=== PATIENT | female | born 1990 | race Caucasian/White ===

== ENCOUNTER 2016-04-08 03:04 | Emergency (ER) | payer BC ==
[~2016-04-08] VITALS: Ht 154.9 cm; Wt 75.3 kg
[2016-04-08] MEDS ORDERED: NKM (03:27)
--- NOTE | 2016-04-08 03:35 | Emergency Room Report ---
History of Present Illness General Chief Complaint: Fever Source: Patient Present Illness HPI Patient presents with 2 days of fever headache body pain. She also has a sore throat. She vomited yesterday had some diarrhea at that time. Her menses are irregular. She doesn't play she now. She's taking her medication issues in an alcohol rehabilitation program. Just not coughing up any productive phlegm. She does smoke cigarettes. She did not get a flu shot. Allergies: Coded Allergies: No Known Allergies (Unverified , 04/08/16) Patient History Past Medical History: see triage record Social History: Reports: alcohol use, smoking Social History Narrative alcohol rehab facility Last Menstrual Period: Mar Now: No : 0 Para: 0 Reviewed Nursing Documentation: PMH: Agreed, PSxH: Agreed Nursing Documentation-PMH Past Medical History: No Stated History Review of Systems All Other Systems: negative except mentioned in HPI Physical Exam Vital Signs Date Time Temp Pulse Resp B/P Pulse Ox O2 Delivery O2 Flow Rate FiO2 04/08/16 03:18 100.2 110 18 121/85 100 Room Air Sp02 EP Interpretation: reviewed, normal General Appearance: well appearing, no apparent distress Head: normocephalic, atraumatic ENT: hearing grossly normal, normal voice, pharyngeal erythema Neck: full range of motion, supple Respiratory: lungs clear, normal breath sounds, no respiratory distress, speaking full sentences Cardiovascular #1: regular rate, rhythm, no edema Gastrointestinal: normal inspection, normal bowel sounds, soft Musculoskeletal: back normal, digits/nails normal, gait/station normal, normal range of motion, no calf tenderness Neurologic: alert, normal gait, grossly normal Psychiatric: mood/affect normal Skin: no rash Medical Decision Making Diagnostic Impression: Primary Impression: Viral syndrome ER Course The patient presents with a short course of flulike symptoms with fever and muscle aches. Differential includes influenza, viral infection, bacterial infection. Exam is against strep at this time. The patient will be treated symptomatically. In addition she comes from a institution influenza will be tested. The patient is improved with oral medication here. Influenza is negative. The patient is stable for outpatient observation and treatment. Last Vital Signs Date Time Temp Pulse Resp B/P Pulse Ox O2 Delivery O2 Flow Rate FiO2 04/08/16 03:18 100.2 110 18 121/85 100 Room Air Status: improved Disposition: HOME, SELF-CARE Condition: Improved Scripts Acetaminophen (Tylenol) 325 Mg Tablet 650 MG ORAL Q6H Y for Prn Pain/Headache/Temp > 101, #30 TAB 0 Refills Prov: Michael Velasco M.D. 04/08/16 Ibuprofen* (MOTRIN*) 600 Mg Tablet 600 MG ORAL Q6H Y for For Pain, #20 TAB Prov: Michael Velasco M.D. 04/08/16 Michael Velasco M.D. Apr 08, 2016 03:35
[2016-04-08] MEDS ORDERED: TYLENOL325 MG ORAL (04:06)
[2016-04-08] MEDS ORDERED: IBUPROFEN600 MG ORAL (04:06)
[2016-04-08 04:11] VITALS: BP 108/66
[2016-04-08 04:12] VITALS: BP 108/66
[2016-04-09] MEDS ORDERED: GUAIFENESIN1200 MG PO (16:21)
[2016-04-09] MEDS ORDERED: CLARITIN10 MG ORAL (16:21)
[2016-04-09] MEDS ORDERED: IBUPROFEN600 MG ORAL (16:21)
[2016-04-09] MEDS ORDERED: PROMETHAZINE-C118 M1 ORAL (16:21)
== END 2016-04-08 04:14 | disposition home or self-care (01) ==
LOC: EMR 03:37
DX: B34.9 Viral infection, unspecified (principal); R51 Headache; R11.10 Vomiting, unspecified; F17.200 Nicotine dependence, unspecified, uncomplicated
CPT/HCPCS: 86710; 99282

== ENCOUNTER 2016-04-09 15:25 | Emergency (ER) | payer BC ==
[~2016-04-09] VITALS: Ht 154.9 cm; Wt 75.3 kg
[~2016-04-09 15:25] MED LIST: IBUPROFEN600 MG ORAL; NKM; TYLENOL325 MG ORAL
--- NOTE | 2016-04-09 16:19 | Emergency Room Report ---
History of Present Illness General Chief Complaint: Pain Source: Patient Present Illness HPI 25-year-old female presents emergency department complaining of continued painful non-productive cough since being evaluated here in the emergency department yesterday. Patient states she was evaluated for influenza and was tested negative and was just discharged with Motrin for pain and fever. Patient reports she had a fever of 105. In addition she night sweats. Patient denies recent travel or ill contacts. She states that she has a persistent cough with some form that will not come out of her throat. Patient states she is coughing so much that she has beginning to have pains throughout the chest upon coughing. Patient denies pain at rest or dyspnea. Patient states pain is only exacerbated upon coughing. Patient denies neck stiffness or pain patient reports fatigue, generalized body aches and station is not up to date with her flu vaccination. Denies cardiac hx, Palpitations, LOC, AMS, dizziness, Changes in Vision, Sensation, paresthesias, or a sudden severe headache. Allergies: Coded Allergies: No Known Allergies (Unverified , 04/08/16) Patient History Past Medical History: see triage record Past Surgical History: none Pertinent Family History: none Last Menstrual Period: 04/02/16 Now: No Reviewed Nursing Documentation: PMH: Agreed, PSxH: Agreed Nursing Documentation-PMH Past Medical History: No Stated History Review of Systems All Other Systems: negative except mentioned in HPI Physical Exam Vital Signs Date Time Temp Pulse Resp B/P Pulse Ox O2 Delivery O2 Flow Rate FiO2 04/09/16 15:31 98.6 95 17 106/69 98 Room Air Sp02 EP Interpretation: reviewed, normal General Appearance: no apparent distress, alert, GCS 15, non-toxic Head: normocephalic, atraumatic Eyes: bilateral eye PERRL, bilateral eye normal inspection ENT: hearing grossly normal, normal pharynx, no angioedema, normal voice Neck: full range of motion, no meningismus, no bony tend, supple/symm/no masses Respiratory: lungs clear, normal breath sounds, no rhonchi, no respiratory distress, no retraction, no accessory muscle use, no wheezing, speaking full sentences, other - TTP to the sternum, pain is reproducible. Cardiovascular #1: regular rate, rhythm, no edema Gastrointestinal: normal bowel sounds, non tender, soft, no guarding, no rebound Rectal: deferred Genitourinary: normal inspection, no CVA tenderness Musculoskeletal: back normal, gait/station normal, normal range of motion, non- tender, no calf tenderness Neurologic: alert, oriented x3, responsive, motor strength/tone normal, sensory intact, speech normal Psychiatric: judgement/insight normal, memory normal, mood/affect normal, no suicidal/homicidal ideation Reflexes: 4+ bicep (R), 4+ bicep (L), 4+ tricep (R), 4+ tricep (L), 4+ knee (R) , 4+ knee (L) Skin: normal color, no rash, warm/dry, well hydrated Lymphatic: no adenopathy Medical Decision Making PA Attestation Dr. Gold is my supervising Physician whom patient management has been discussed with. Diagnostic Impression: Primary Impression: Viral syndrome Additional Impression: Upper respiratory infection, viral ER Course Pt. presents to the ED c/o cough congestion bodyaches, fevers, chills x 3 days. was seen here in ED yesterday and was negative for influenza. pt. reports continued non-productive cough. Ddx considered but are not limited to URI, pneumonia, PE, strep pharyngitis, meningitis. Vital signs: Pt. is afebrile, the remaining VS are WNL H&PE are most consistent with VIral Syndrome and URI- no meningeal signs, oropharynx is not involved, no evidence of bacterial infection at this time. ORDERS: none required at this time, the diagnosis is clinical ED INTERVENTIONS: None required at this time. --PT. EDUCATION: Discussed antibiotic resistance with inappropriate prescribing of antibiotics for viral illnesses. Discussed signs and symptoms to indicate viral illness versus bacterial illness. - D/w pt. will rx cough syrup and NSAIDs to be taken for conservative management of her symptoms. DISCHARGE: At this time pt. is stable for d/c to home. Will provide printed patient care instructions, and any necessary prescriptions. Care plan and follow up instructions have been discussed with the patient prior to discharge. Last Vital Signs Date Time Temp Pulse Resp B/P Pulse Ox O2 Delivery O2 Flow Rate FiO2 04/09/16 15:31 98.6 95 17 106/69 98 Room Air Disposition: HOME, SELF-CARE Condition: Stable Scripts Guaifenesin (Guaifenesin) 1,200 Mg Tab.er.12h 1200 MG PO BID for 5 Days, #10 TAB Prov: Latasha Hopson 04/09/16 Loratadine (CLARITIN) 10 Mg Tablet 10 MG ORAL DAILY for 14 Days, #14 TAB Prov: Latasha Hopson 04/09/16 Codeine/Promethazine Hcl* (PROMETHAZINE-CODEINE SYRUP*) 118 Ml Syrup 5 ML ORAL Q6H Y for For Cough, #118 ML 0 Refills Prov: Latasha Hopson 04/09/16 Ibuprofen* (MOTRIN*) 600 Mg Tablet 600 MG ORAL THREE TIMES A DAY, #30 TAB 0 Refills Prov: Latasha Hopson 04/09/16 Patient Instructions: Chest Wall Pain, [id number], Upper Respiratory Infection, Adult, [id number] Additional Instructions: Take medications as directed. Follow up with PCP in 3-5 days Return sooner to ED if new symptoms occur, or current symptoms become worse. Do not drink alcohol, drive, or operate heavy machinery while taking Cough Syrup as this may cause drowsiness. Latasha Hopson Apr 09, 2016 16:19
[2016-04-09] MEDS ORDERED: IBUPROFEN600 MG ORAL (16:21)
[2016-04-09] MEDS ORDERED: GUAIFENESIN1200 MG PO (16:21)
[2016-04-09] MEDS ORDERED: CLARITIN10 MG ORAL (16:21)
[2016-04-09] MEDS ORDERED: PROMETHAZINE-C118 M1 ORAL (16:21)
[2016-04-09 16:38] VITALS: BP 106/69
== END 2016-04-09 16:38 | disposition home or self-care (01) ==
LOC: EMR 16:03
DX: B34.9 Viral infection, unspecified (principal); J06.9 Acute upper respiratory infection, unspecified
CPT/HCPCS: 99282